=== PATIENT | female | born 1935 | race Caucasian/White ===

== ENCOUNTER 2016-11-28 09:00 | Outpatient (RCR) | payer OTHER ==
[~2016-11-28 09:00] MED LIST: CRESTOR10 M1 ORAL; CYMBALTA30 MG ORAL; LABETALOL HCL100 MG ORAL; VICODIN 5-5001 EACH PO
== END 2016-12-16 | disposition home or self-care (01) ==
LOC: PTY 09:00
DX: M54.5 Low back pain (principal)

== ENCOUNTER 2016-12-27 09:45 | Outpatient (RCR) | payer OTHER | END 2017-01-15 | disposition home or self-care (01) | LOC: PTY 09:45 | DX: M54.5 Low back pain (principal) ==

== ENCOUNTER 2017-01-17 08:58 | Outpatient (RCR) | payer OTHER | END 2017-02-15 | disposition home or self-care (01) | LOC: PTY 08:58 | DX: M54.5 Low back pain (principal); Z88.0 Allergy status to penicillin; Z88.8 Allergy status to other drugs, medicaments and biological substances ==

== ENCOUNTER 2017-02-22 09:00 | Outpatient (RCR) | payer OTHER | END 2017-03-17 | disposition home or self-care (01) | LOC: PTY 09:00 | DX: M54.5 Low back pain (principal) ==